=== PATIENT | male | born 1990 | race Caucasian/White ===

== ENCOUNTER 2019-11-02 13:15 | Emergency (ER) | payer SELFPAY ==
[~2019-11-02] VITALS: Ht 177.8 cm; Wt 57.7 kg
[2019-11-02 13:56] VITALS: BP 121/71; Ht 177.8 cm; Wt 57.7 kg
--- NOTE | 2019-11-02 14:53 | NUR ---
DR. SCOTT NOTIFIED AND REVIEWED PT'S BEHAVIOR AND ASSESSMENT RESULTS. PT IS A LOW RISK PER DR. SCOTT. DR. SCOTT STATED TO GIVE RESOURCES TO PT AT TIME OF DISCHARGE. NO FURTHER ORDERS AT THIS TIME. RESOUCRES REVIEWED WITH PT AND HE VERBALIZIED UNDERSTANDING.
[2019-11-02] MEDS ORDERED: OCUFLOX 0.3 % OP5 ML LEFT EYE (15:09)
== END 2019-11-02 15:23 | disposition home or self-care (01) ==
LOC: D.ER 13:15
DX: H60.91 Unspecified otitis externa, right ear (principal); Z72.0 Tobacco use